=== PATIENT | male | born 1990 | race Caucasian/White ===

== ENCOUNTER → 2019-05-08 12:49 | Outpatient (BNVA) | payer SELFPAY | PROVIDERS: Family Provider Emergency Medicine; Visit Provider Family Medicine | DX: J11.1 Influenza due to unidentified influenza virus with other respiratory manifestations (principal); J45.21 Mild intermittent asthma with (acute) exacerbation; R68.89 Other general symptoms and signs; B97.89 Other viral agents as the cause of diseases classified elsewhere | CPT/HCPCS: 87804 ==